=== PATIENT | male | born 2000 | race Caucasian/White ===

== ENCOUNTER 2021-05-23 15:56 | Emergency (ER) | payer SELFPAY ==
[~2021-05-23] VITALS: Ht 186 cm; Wt 92.0 kg
--- NOTE | 2021-05-23 16:57 | ED Cough/URI ---
General Chief Complaint: Fever-Adult/Adol Stated Complaint: FEVER, LOSS OF TASTE/SMELL Nursing Triage Note: PT STATES FEVER THAT STARTED LAST NIGHT, LOSS OF TASTE AND SMELL THIS A.M. ROOM MATE IS COVID POSITIVE- TESTED YESTERDAY. Source: patient Exam Limitations: no limitations History of Present Illness Date Seen by Provider: May 23, 2021 Time Seen by Provider: 16:39 Initial Comments Here with report of body aches and fatigue that started on 05/21/2021 and progressed to loss of taste and smell this morning. Notes runny nose, mild cough, moderate amount of mucus, fever, chills and just not feeling well. His roommate is positive for COVID-19. He is not vaccinated. He had Tylenol earlie r today at about 1 PM. Still has some fever. Timing/Duration: getting worse, other (2 days) Severity/Quality: mild, dry cough Prior Episodes/Possible Cause: no prior episodes Modifying Factors: Improves With Rest Associated Symptoms: cough, headache, muscle aches, nasal congestion, nasal drainage, sore throat Allergies and Home Medications Allergies Coded Allergies: No Known Drug Allergies (Unverified , 05/23/21) Patient Home Medication List Home Medication List Reviewed: Yes Review of Systems Review of Systems Constitutional: see HPI, chills, fever EENTM: see HPI Respiratory: see HPI Cardiovascular: no symptoms reported Gastrointestinal: nausea; No vomiting Genitourinary: no symptoms reported Musculoskeletal: see HPI Skin: no symptoms reported Psychiatric/Neurological: No Symptoms Reported Past [id number]-[id number] Hx Patient Social History Tobacco Use?: Yes Tobacco type used: Cigarettes Smoking Status: Current Everyday Smoker Substance use?: Yes Substance type: Caffeine Past Medical History Surgeries: No Respiratory: No Cardiac: No Neurological: No Genitourinary: No Gastrointestinal: No Family Medical History Reviewed Nursing Family Hx Physical Exam Vital Signs - First Documented 05/23/21 16:25 Temp 37.1 Pulse 66 Resp 18 B/P (MAP) 116/67 (83) Pulse Ox 98 O2 Delivery Room Air Capillary Refill : Less Than 3 Seconds Height: '" Weight: lbs. oz. kg; 26.00 BMI Method: General Appearance: WD/WN, no apparent distress HEENT: PERRL/EOMI, pharynx normal, other (Bilateral nasal congestion) Neck: full range of motion, supple, normal inspection Respiratory: lungs clear, normal breath sounds Cardiovascular: regular rate, rhythm, no murmur Gastrointestinal: non tender, soft Neurologic/Psychiatric: alert, oriented x 3 Skin: normal color, warm/dry Progress/Results/Core Measures Suspected Sepsis SIRS Temperature: Pulse: 66 Respiratory Rate: 18 Blood Pressure 116 /67 Mean: 83 Results/Orders Lab Results Laboratory Tests Test 05/23/21 16:00 Range/Units Influenza Type A (RT-PCR) Not Detected Not Detecte Influenza Type B (RT-PCR) Not Detected Not Detecte SARS-CoV-2 RNA (RT-PCR) Detected H Not Detecte Vital Signs/I&O 05/23/21 16:25 Temp 37.1 Pulse 66 Resp 18 B/P (MAP) 116/67 (83) Pulse Ox 98 O2 Delivery Room Air Capillary Refill : Less Than 3 Seconds Blood Pressure Mean: 83 Progress Note : Progress Note Seen and evaluated. Covid test initiated. Monitor patient. 1710: Patient is positive for COVID-19. Discharged home with return precautions. Patient verbalized understanding instructions and agreement with plan. Departure Impression Primary Impression: COVID-19 virus infection Disposition: 01 HOME, SELF-CARE Condition: Stable Departure-Patient Inst. Decision time for Depature: 16:56 Referrals: NO,LOCAL PHYSICIAN (PCP/Family) Primary Care Physician Patient Instructions: COVID-19 (DC) Add. Discharge Instructions: All discharge instructions reviewed with patient and/or family. Voiced understanding. Drink plenty of fluids and get plenty of rest. Your COVID-19 test was positive. You will need to remain in isolation for at least 10 days with day 0 on 21 May 2021 and you will count for 10 days from there. You must be symptom improving and fever free in the last 3 days without fever reducing medicines to be out of isolation after the 10th day. The health department should contact you to direct timeframe as well. You need to notify your close contacts so that they may quarantine and this will include anybody that you are around for 10 minutes within 6 feet 2 days prior to onset of symptoms. Monitor your oxygen saturation while resting. Currently it is 96 percent. If that starts to decline to the low 90s and certainly below 90, please return immediately to the emergency department for further evaluation. You may take ibuprofen 600 mg every 8 hours as needed for fever or pain. You may take Tylenol/acetaminophen 1000 mg every 8 hours as needed for fever or pain. Return for worse pain, fever, vomiting, weakness, breathing problems or other concerns as needed. PEDRO FOWLER MD May 23, 2021 16:57
[2021-05-23 17:17] VITALS: BP 106/87
== END 2021-05-23 17:17 | disposition home or self-care (01) ==
LOC: EDUNIT# 15:56 → ER 16:02
DX: U07.1 COVID-19 (principal); F17.210 Nicotine dependence, cigarettes, uncomplicated
CPT/HCPCS: 87636; 99282